=== PATIENT | female | born 1970 | race Caucasian/White ===

== ENCOUNTER 2025-02-26 21:47 | Emergency (ER) | payer BC ==
[~2025-02-26] VITALS: Ht 167.6 cm; Wt 83.0 kg
[2025-02-26 22:10] VITALS: O2SAT 99
[2025-02-26] MEDS ORDERED: IBUP-2029 MT (23:24)
[2025-02-27] MEDS: IBUPROFEN 600MG TABLET PO ONE (00:08)
[2025-02-27 00:12] VITALS: BP 152/92; PULSE 70; RESP 16; TEMP 36.7; O2SAT 99
== END 2025-02-27 00:17 | disposition home or self-care (01) ==
LOC: ER 21:47
DX: M25.531 Pain in right wrist (principal); J45.909 Unspecified asthma, uncomplicated
CPT/HCPCS: 99284; 73110; 73130; 29125; A6449